=== PATIENT | male | born 1995 | race Caucasian/White ===

== ENCOUNTER 2017-12-14 20:30 | Emergency (ER) | payer BC, OTHER ==
[2017-12-14] MEDS ORDERED: NA CHLORIDE 0.9% 1,000 ML ONE (21:46)
[2017-12-14 21:53] LABS: Absolute Lymphocytes (CBC) 0.6 K/uL (0.7-4.9); Absolute Monocytes 0.7 K/uL (0.1-1.3); Absolute Neutrophil 4.2 K/uL (1.8-8.0); Basophils % 0.2 % (0-1.3); Eosinophils % 0.3 % (0-4.4); Hematocrit 40.6 % (39.6-49.0); Lymphocytes % 10.4 % (15.3-44.8); MCH 29.3 pg (27.0-35.0); MCV 89.8 fL (80-100); MPV 9.4 fL (7.6-11.3); RBC Red Blood Cell Count 4.51 M/uL (4.33-5.43)
[2017-12-14 22:01] LABS: Bicarbonate 28 mEq/L (21-31); Glucose Level 111 mg/dL (65-120); Lipase 18 U/L (22-51); Potassium 3.5 mEq/L (3.6-5.0); Sodium Level 137 mEq/L (135-145)
[2017-12-14 22:06] LABS: Urine Bacteria <20 /HPF (NONE SEEN); Urine Culture Reflex Order NOT NEEDED; Urine RBC <5 /HPF (NONE SEEN)
[2017-12-14 22:07] LABS: ALT/SGPT 16 IU/L (10-60); AST/SGOT 21 IU/L (10-42); Albumin 3.9 g/dL (3.2-5.5); Alkaline Phosphatase 52 IU/L (42-121); Amylase Level 30 U/L (28-100); BUN Blood Urea Nitrogen 11 mg/dL (6-20); Bilirubin Direct 0.1 mg/dL (0-0.2); Bilirubin Total 0.4 mg/dL (0.3-1.2); Protein, Total 6.6 g/dL (6.0-8.3)
[2017-12-14 22:07] LABS: Urine Blood NEGATIVE (NEG); Urine Glucose NEGATIVE (NEG); Urine Protein TRACE (NEG); Urine Specific Gravity 1.025 (1.005-1.030)
--- NOTE | 2017-12-15 00:19 | EDPHYS ---
Physician Documentation [facility] Name: Juno Adkins Age: 22 yrs Sex: Male : 1995 Arrival Date: 12/14/2017 Time: 20:36 Bed 20 Private MD: Sami Chang ED Physician Jorge Sharpe HPI: 12/14 21:35 This 22 yrs old Male presents to ER via Ambulatory with complaints of Fever, cp Nausea/Vomiting. 21:35 The patient reports fever, that was measured at 102 degrees Fahrenheit, today. Onset: cp The symptoms/episode began/occurred 3 day(s) ago. Associated signs and symptoms: Pertinent positives: headache, diarrhea 3 days ago, intermittent vomiting, nausea. Severity of symptoms: in the emergency department the symptoms have improved mildly. 21:35 Associated signs and symptoms: Pertinent positives: sore throat. cp Historical: - Allergies: 21:12 No Known Allergies; jd3 - Home Meds: 21:33 anxiety med [Active]; ea - PMHx: 21:33 Anxiety; ea - PSHx: 21:33 None; ea - Immunization history:: Adult Immunizations up to date. - Social history:: Smoking status: Patient uses tobacco products, denies chronic smoking, but will smoke occasionally. - Ebola Screening: : Patient negative for fever greater than or equal to 101.5 degrees Fahrenheit, and additional compatible Ebola Virus Disease symptoms. ROS: 21:42 Constitutional: Negative for fever, poor PO intake. cp 21:42 Eyes: Negative for injury, pain, redness, and discharge. cp 21:42 ENT: Positive for sore throat, Negative for drainage from ear(s), ear pain, difficulty swallowing, difficulty handling secretions. 21:42 Neck: Negative for pain with movement, pain at rest, stiffness, swollen nodes. 21:42 Cardiovascular: Negative for chest pain, palpitations. 21:42 Respiratory: Negative for cough, shortness of breath, wheezing. 21:42 Abdomen/GI: Positive for nausea, Negative for abdominal pain, constipation, black/tarry stool, rectal bleeding, active vomiting, active diarrhea. 21:42 Back: Negative for pain at rest, pain with movement, radiated pain. 21:42 : Negative for urinary symptoms, pelvic pain, flank pain, testicular pain 21:42 Skin: Negative for cellulitis, rash. 21:42 Neuro: Positive for headache, Negative for altered mental status, weakness. 21:42 All other systems are negative. Exam: 21:50 Constitutional: The patient appears in no acute distress, alert, awake, non-toxic, well cp developed, well nourished. 21:50 Head/Face: Normocephalic, atraumatic. cp 21:50 Eyes: Periorbital structures: appear normal, Pupils: equal, round, and reactive to light and accomodation, Extraocular movements: intact throughout, Conjunctiva: normal, no exudate, no injection, Sclera: no appreciated abnormality, Lids and lashes: appear normal, bilaterally. 21:50 ENT: External ear(s): are unremarkable, Ear canal(s): are normal, clear, TM's: are normal, no evidence of bulging, no erythema, dullness, bilaterally, Nose: is normal, Mouth: Lips: moist, Oral mucosa: pink and intact, moist, Posterior pharynx: Airway: no evidence of obstruction, patent, Tonsils: mild erythema, no enlargement, no exudate, Uvula: midline, non-edematous, swelling, is not appreciated, erythema, that is mild, exudate, is not appreciated, Voice: is normal. 21:50 Neck: ROM/movement: is normal, is supple, without pain, no range of motions limitations, no meningismus, no nuchal rigidity, Lymph nodes: no appreciated lymphadenopathy. 21:50 Chest/axilla: Inspection: normal, Palpation: is normal, no crepitus, no tenderness. 21:50 Cardiovascular: Rate: normal, Rhythm: regular, Edema: is not appreciated, JVD: is not appreciated. 21:50 Respiratory: the patient does not display signs of respiratory distress, Respirations: normal, no use of accessory muscles, no retractions, no splinting, no tachypnea, labored breathing, is not present, Breath sounds: are clear throughout, no decreased breath sounds, no stridor, no wheezing. 21:50 Abdomen/GI: Inspection: abdomen appears normal, Bowel sounds: active, all quadrants, Palpation: soft, in all quadrants, nontender, in all quadrants, rebound tenderness, is not appreciated, voluntary guarding, is not appreciated, involuntary guarding, is not appreciated. 21:50 Back: ROM is normal, CVA tenderness, is absent. 21:50 Musculoskeletal/extremity: Exam is negative for bony tenderness, calf tenderness, deformity, edema, injury, Circulation is intact in all extremities. Sensation intact. 21:50 Skin: cellulitis, is not appreciated, no rash present. 21:50 Neuro: Orientation: to person, place \T\ time. Mentation: lucid, able to follow commands, Cerebellar function: is grossly normal, Motor: moves all fours, strength is normal, Sensation: no obvious gross deficits, Gait: is steady. Vital Signs: 21:07 BP 141 / 54; Pulse 87; Resp 18 S; Temp 99.7(O); Pulse Ox 97% on R/A; Weight 136.08 kg jd3 (R); Height 6 ft. 4 in. (193.04 cm) (R); Pain 3/10; 22:00 BP 114 / 59; Pulse 76; Pulse Ox 99% on R/A; jd3 23:14 BP 122 / 63; Pulse 63; Resp 17 S; Temp 99.7(O); Pulse Ox 100% on R/A; Pain 3/10; jd3 11 00:21 BP 135 / 60; Pulse 72; Resp 17 S; Pulse Ox 99% on R/A; Pain 3/10; jd3 12/14 21:07 Body Mass Index 36.52 (136.08 kg, 193.04 cm) jd3 MDM: 12/14 20:46 Patient medically screened. pkl 22:00 Differential diagnosis: bronchitis, pneumonia UTI, gastroenteritis, meningitis, cp bacteremia, strep throat, mono. 12/15 00:15 Data reviewed: vital signs, nurses notes, lab test result(s). cp 00:15 Counseling: I had a detailed discussion with the patient and/or guardian regarding: the cp historical points, exam findings, and any diagnostic results supporting the discharge/admit diagnosis, lab results, to return to the emergency department if symptoms worsen or persist or if there are any questions or concerns that arise at home. Response to treatment: the patient's symptoms have markedly improved after treatment, patient is well hydrated. and as a result, I will discharge patient. 12/14 21:21 Order name: Amylase, Serum cp 12/14 21:21 Order name: Basic Metabolic Panel cp 12/14 20: Order name: CBC with Diff; Complete Time: 22:57 cp 12/14 22:57 Interpretation: Normal except: HGB 13.2; PLT 128; CLAY% 77.1; LYM% 10.4; LYMA 0.6. cp 12/14 21:21 Order name: Creatinine for Radiology; Complete Time: 22:57 cp 12/14 21:21 Order name: Hepatic Function 12/14 21:21 Order name: Lipase; Complete Time: 22:57 cp 12/14 22:57 Interpretation: LIP 18; Reviewed. 12/14 21:21 Order name: Urine Microscopic Only; Complete Time: 22:57 cp 12/14 21:21 Order name: [place] Screen Profile; Complete Time: 22:57 cp 12/14 21:21 Order name: Strep; Complete Time: 22:57 cp 12/14 21:22 Order name: Amylase Level; Complete Time: 22:57 EDMS 12/14 21:22 Order name: Basic Metabolic Panel; Complete Time: 22:57 EDMS 12/14 22:57 Interpretation: Normal except: K 3.5. 12/14 21:22 Order name: Liver (Hepatic) Function; Complete Time: 22:57 EDMS 12/14 22:01 Order name: Urine Dipstick--Ancillary (enter results); Complete Time: 22:57 2 12/14 22:04 Order name: Throat Culture EDMN 12/14 21:21 Order name: IV Saline Lock; Complete Time: 22:02 cp 12/14 21:21 Order name: Labs collected and sent; Complete Time: 22:02 cp 12/14 21:21 Order name: Urine Dipstick-Ancillary (obtain specimen); Complete Time: 22:02 12/14 22:58 Order name: Influenza Screen (a \T\ B) 12/14 22:58 Order name: PO challenge; Complete Time: 23:01 cp Administered Medications: 12/14 21:50 Drug: NS 0.9% 1000 ml Route: IV; Rate: 1 bolus; Site: right antecubital; jd3 12/15 00:30 Follow up: Response: No adverse reaction; IV Status: Completed infusion; IV Intake: jd3 1000ml Disposition: 23:15 Co-signature as Attending Physician, Jorge Sharpe MD. pkl Disposition: 12/15/17 00:18 Discharged to Home. Impression: Nausea. - Condition is Stable. - Discharge Instructions: Nausea, Adult. - Prescriptions for Zofran 4 mg Oral Tablet - take 1 tablet by ORAL route every 12 hours As needed; 20 tablet. - Medication Reconciliation Form, Thank You Letter, Antibiotic Education, Prescription Opioid Use form. - Follow up: Private Physician; When: 1 - 2 days; Reason: Recheck today's complaints. - Problem is new. - Symptoms have improved. Signatures: Dispatcher [employer] EDMS Jorge Sharpe MD MD pkRodrigo Berry PA PA cp Antunez, Elena RN RN Silviano Brown RN RN jd3 Corrections: (The following items were deleted from the chart) 12/14 22:57 22:57 Normal except: HGB 13.2; PLT 128; CLAY% 77.1; LYM% 10.4. cp cp 12/15 00:30 00:18 12/15/2017 00:18 Discharged to Home. Impression: Nausea. Condition is Stable. jd3 Forms are Medication Reconciliation Form, Thank You Letter, Antibiotic Education, Prescription Opioid Use. Follow up: Private Physician; When: 1 - 2 days; Reason: Recheck today's complaints. Problem is new. Symptoms have improved. cp
--- NOTE | 2017-12-15 00:19 | ER ---
Nurse's Notes [facility] Name: Juno Adkins Age: 22 yrs Sex: Male : 1995 Arrival Date: 12/14/2017 Time: 20:36 Bed 20 Private MD: Sami Chang Diagnosis: Nausea Presentation: 12/14 21:13 Presenting complaint: Patient states: "I have been feeling achy and throwing up since jd3 with a persistent fever.". Transition of care: patient was not received from another setting of care. Onset of symptoms was December 11, 2017. Risk Assessment: Do you want to hurt yourself or someone else? Patient reports no desire to harm self or others. Initial Sepsis Screen: Does the patient meet any 2 criteria? No. Patient's initial sepsis screen is negative. Does the patient have a suspected source of infection? No. Patient's initial sepsis screen is negative. Care prior to arrival: Medication(s) given: Tylenol, 1000 mg, at 2000. 21:13 Method Of Arrival: Ambulatory jd3 21:13 Acuity: TELLY 3 jd3 Historical: - Allergies: 21:12 No Known Allergies; jd3 - Home Meds: 21:33 anxiety med [Active]; ea - PMHx: 21:33 Anxiety; ea - PSHx: 21:33 None; ea - Immunization history:: Adult Immunizations up to date. - Social history:: Smoking status: Patient uses tobacco products, denies chronic smoking, but will smoke occasionally. - Ebola Screening: : Patient negative for fever greater than or equal to 101.5 degrees Fahrenheit, and additional compatible Ebola Virus Disease symptoms. Screenin:15 Abuse screen: Denies threats or abuse. Nutritional screening: No deficits noted. jd3 Tuberculosis screening: No symptoms or risk factors identified. Fall Risk Gait- Normal/Bed Rest/Wheelchair (0 pts) Mental Status- Oriented to own ability (0 pts). Total [place] Fall Scale indicates No Risk (0-24 pts). Assessment: 21:05 General: Appears in no apparent distress. uncomfortable, Behavior is calm, cooperative, jd3 appropriate for age. Pain: Complains of pain in back, right leg, left leg and neck Pain currently is 3 out of 10 on a pain scale. Quality of pain is described as aching. Neuro: Level of Consciousness is awake, alert, obeys commands, Oriented to person, place, time, situation. Cardiovascular: Heart tones S1 S2 present Capillary refill < 3 seconds. Respiratory: Airway is patent Respiratory effort is even, unlabored, Respiratory pattern is regular, symmetrical, Breath sounds are clear bilaterally. GI: Abdomen is round Bowel sounds present X 4 quads. Abd is soft and non tender X 4 quads. Reports nausea, vomiting, Patient currently denies abdominal pain. : No signs and/or symptoms were reported regarding the genitourinary system. EENT: No signs and/or symptoms were reported regarding the EENT system. Derm: Skin is intact, Skin is dry, Skin is normal, Skin temperature is warm. Musculoskeletal: Circulation, motion, and sensation intact. Range of motion: intact in all extremities. 22:10 Reassessment: Patient appears in no apparent distress at this time. Patient and/or jd3 family updated on plan of care and expected duration. Pain level reassessed. Patient is alert, oriented x 3, equal unlabored respirations, skin warm/dry/pink. 23:15 Reassessment: Patient appears in no apparent distress at this time. Patient and/or jd3 family updated on plan of care and expected duration. Pain level reassessed. Patient is alert, oriented x 3, equal unlabored respirations, skin warm/dry/pink. awaiting provider's disposition and results. 12/15 00:21 Reassessment: Patient appears in no apparent distress at this time. Patient and/or jd3 family updated on plan of care and expected duration. Pain level reassessed. Patient is alert, oriented x 3, equal unlabored respirations, skin warm/dry/pink. 00:28 Reassessment: Patient appears in no apparent distress at this time. Patient and/or jd3 family updated on plan of care and expected duration. Pain level reassessed. Patient is alert, oriented x 3, equal unlabored respirations, skin warm/dry/pink. pt reported understanding of discharge instructions, even and steady gait upon discharge. Vital Signs: 12/14 21:07 BP 141 / 54; Pulse 87; Resp 18 S; Temp 99.7(O); Pulse Ox 97% on R/A; Weight 136.08 kg jd3 (R); Height 6 ft. 4 in. (193.04 cm) (R); Pain 3/10; 22:00 BP 114 / 59; Pulse 76; Pulse Ox 99% on R/A; jd3 23:14 BP 122 / 63; Pulse 63; Resp 17 S; Temp 99.7(O); Pulse Ox 100% on R/A; Pain 3/10; jd3 12/15 00:21 BP 135 / 60; Pulse 72; Resp 17 S; Pulse Ox 99% on R/A; Pain 3/10; jd3 12/14 21:07 Body Mass Index 36.52 (136.08 kg, 193.04 cm) jd3 ED Course: 12/14 20:36 Patient arrived in ED. am2 20:36 Sami Chang MD is Private Physician. am2 20:46 Jorge Sharpe MD is Attending Physician. pkl 20:46 Rodrigo Goetz PA is PHCP. cp 21:05 Silviano Owens, GILA is Primary Nurse. jd3 21:09 Arm band placed on. jd3 21:15 Triage completed. jd3 21:15 Patient has correct armband on for positive identification. Bed in low position. Call jd3 light in reach. Side rails up X 1. Adult w/ patient. 21:35 Inserted saline lock: 20 gauge in right antecubital area, using aseptic technique. jd3 Blood collected. 12/15 00:28 No provider procedures requiring assistance completed. IV discontinued, intact, jd3 bleeding controlled, No redness/swelling at site. Pressure dressing applied. Administered Medications: 12/14 21:50 Drug: NS 0.9% 1000 ml Route: IV; Rate: 1 bolus; Site: right antecubital; jd3 12/15 00:30 Follow up: Response: No adverse reaction; IV Status: Completed infusion; IV Intake: jd3 1000ml Intake: 00:30 IV: 1000ml; Total: 1000ml. jd3 Outcome: 00:18 Discharge ordered by . cp 00:28 Discharged to home ambulatory, with family. jd3 00:28 Condition: stable 00:28 Discharge instructions given to patient, family, Instructed on discharge instructions, follow up and referral plans. medication usage, Demonstrated understanding of instructions, follow-up care, medications, Prescriptions given X 1. 00:30 Patient left the ED. jd3 Signatures: Jorge Sharpe MD MD pkRodrigo Berry PA PA cp Moreno, Amanda am2 Antunez, Elena, RN GILA ea Silviano Owens RN RN jd3 Corrections: (The following items were deleted from the chart) 12/14 21:28 21:13 Acuity: TELLY 4 jd3 jd3
== END 2017-12-15 00:30 | disposition home or self-care (01) ==
LOC: ER 20:30
DX: R11.0 Nausea (principal); Z72.0 Tobacco use
CPT/HCPCS: 36415; 80048; 80076; 81003; 81015; 82150; 83690; 85025; 86308; 87070; 87081; 87804; 96360; 96361; 99284; J7030

== ENCOUNTER 2020-05-27 09:52 | Emergency (ER) | payer BC, SELFPAY ==
--- OUTSIDE RECORDS SUMMARY | 2020-05-27 09:54 | XMS REPORT | Summary of Care ---
:1995 Author Organization [facility] - Health Address [address] [place] [address] Care Team Providers Name Role Phone Sami Chang Primary Care Provider Reason for Visit Reason Comments LAB WORK Encounter Details Date Type Department Care Team Description 03/23/2020 Laboratory Only [facility] Robert Soler MD [address] [facility] [address] [place] [address] COVID-19 (Primary Phlebotomy Only, Adc Test Dx) Lab-[address] [id number] Allergies Not on Filedocumented as of this encounter (statuses as of 03/23/2020) Medications Not on filedocumented as of this encounter (statuses as of 03/23/2020) Active Problems Not on filedocumented as of this encounter (statuses as of 03/23/2020) Social History Tobacco Use Types Packs/Day Years Used Date Never Assessed Sex Assigned at Date Recorded Not on file documented as of this encounter Last Filed Vital Signs Not on filedocumented in this encounter Nursing Notes Cate Bowling - 03/23/2020 12:00 PM CDTCovid swab collected. documented in this encounter Plan of Treatment Name Type Priority Associated Diagnoses Date/Ti me COVID-19 (PCR MOLECULAR LAB Routine COVID-19 03/07 12:16 PM CDT TESTING) Name Type Priority Associated Diagnoses Order S chedule COVID-19 (PCR MOLECULAR LAB Routine COVID-19 Expe cted: 03/23/2020, TESTING) Expires: 2020 Health Maintenance Due Date Last Done Comments VARICELLA VACCINES (1 of 2 - 1995 2-dose childhood series) HPV VACCINES (1 - Male 2-dose 2005 series) Depression Screening 2006 DTaP,Tdap,and Td Vaccines (1 - 2013 Tdap) INFLUENZA VACCINE (#1) 2020 PNEUMOCOCCAL 0-64 YEARS COMBINED Aged Out No longer eligible based on SERIES patient's age to complete this topic documented as of this encounter Results Not on filedocumented in this encounter Visit Diagnoses Diagnosis COVID-19 - Primary documented in this encounter Additional Health Concerns Infection Onset Date Last Indicated Resolved Time COVID-19 Rule Out 03/23/2020 03/23/2020 documented as of this encounter Insurance Payer Benefit Plan Subscriber ID Effective Dates Phone Address Type / Group [facility] [id number] 2019-Adarsh [phone] [address] PPO/POS [place] - OUT OF t 7 [id number] [place] [address] documented as of this encounter
--- OUTSIDE RECORDS SUMMARY | 2020-05-27 09:54 | XMS REPORT | Summary of Care ---
:1995 Author Organization [facility] - Health Address [address] [place] [address] Care Team Providers Name Role Phone Sami Chang Primary Care Provider Encounter Details Date Type Department Care Team Description 03/23/2020 Letter (Out) [facility] MyChart Message s Doctor Unassigned, No [address] [facility] [place] [address] [address] [facility] [phone] [place] [address] Allergies Not on Filedocumented as of this [...] Signs Not on filedocumented in this encounter Plan of Treatment Not on filedocumented as of this encounter Results Not on filedocumented in this encounter Insurance Payer Benefit Plan Subscriber ID Effective Dates Phone Address Type / Group [employer] [facility] [id number] 2019-Adarsh [phone] [address] PPO/POS [place] - OUT OF t 7 [id number] [place] [address] documented as of this encounter
--- OUTSIDE RECORDS SUMMARY | 2020-05-27 09:54 | XMS REPORT | Continuity of Care Document ---
:1995 Author Organization [facility] t Address [address] [place] [address] Care Team Providers Name Role Phone Only, Test Attending Clinician Unavailable Doctor Unassigned, Name Attending Clinician Unavailable Problems Condition Condition Condition Status Onset Resolution Last Treating Co mments Source Name Details Category Date Date Treatment Clinician Date Anxiety Anxiety Diagnosis [facility] Body mass Body mass Problem Active [facility] (BMI) of (BMI) of [facility] a 35.0-35.9 35.0-35.9 l in adult in adult Outpat i ent Clinics Onychomyco Onychomyco Diagnosis Active [facility] Allergies, Adverse Reactions, Alerts This patient has no known allergies or adverse reactions. Medications Ordered Filled Start Stop Current Ordering Indication Dosage Frequency Signature Comments Components Source Medication Medication Date Date Medication? Clinician (SIG) Name Name HydrOXYzine HydrOXYzine 2019- Yes Sami [address] [facility] HCl HCl 6-11 Charlene as needed [facility] Terbinafine Terbinafine 2019- 2019- No Sami [address] [facility] HCl HCl 6-11 09-09 Charlene [facility]: 00:00 [facility] 00 :[facility] Fluticasone Fluticasone 2017- Yes Sami [address] [facility] Propionate Propionate 0-08 Charlene each Bee k[facility] - 00:00: nostril [facility] 00 l [facility] Sertraline Sertraline 2017- Yes Sami [address] [facility] HCl HCl 3-22 Charlene [facility] - 00:00: [facility] 00 [facility] ent Clinics Procedures This patient has no known procedures. Encounters Start End Encounter Admission Attending Care Care Encounter Source Date/Time Date/Time Type Type Clinicians Facility Department ID 2020-03-23 2020-03-23 Laboratory Only, Adc [facility] [id number] 12:08:50 12:23:50 Only Test [place] [id number] [place] [id number] [place] [id number] 2020-03-23 2020-03-23 Orders Doctor LATOSHA [id number] 00:00:00 00:00:00 Only Unassigned, [place] [id number] [place] [id number] [id number] 2020-03-23 2020-03-23 Letter Doctor LATOSHA [id number] 00:00:00 00:00:00 (Out) Unassigned, [facility] [id number] [place] [id number] 2019-03-15 2019-03-15 [facility] [id number] [facility] 08:00:00 08:00:00 [facility] 2018-12-15 2018-12-15 [facility] [id number] [facility] [address] 16:30:00 16:30:00 [facility] 2018-06-17 2018-06-17 [facility] [id number] 09:00:00 09:00:00 [facility] Medicine Medicine Outpati ent Clinics 2018-04-13 2018-04-13 [facility] [id number] [facility] 14:30:00 14:30:00 [facility] Medicine Outpati ent Clinics 2017-12-16 2017-12-16 [facility] [id number] [facility] [address] 14:45:00 14:45:00 [facility] Medicine Outpati ent Clinics Results This patient has no known results.
--- OUTSIDE RECORDS SUMMARY | 2020-05-27 09:54 | XMS REPORT | Summary of Care ---
:1995 Author Organization [facility] - Health Address [address] [place] [address] Care Team Providers Name Role Phone Sami Chang Delia Primary Care Provider Encounter Details Date Type Department Care Team Description 03/23/2020 Orders Only [facility] Doctor Unassigned, No 301 [facility] [place] [address] [address] [place] [address] Allergies Not on Filedocumented as of this [...] Not on filedocumented as of this encounter Procedures Procedure Name Priority Date/Time Associated Diagnosis Comme nts ASSIGNMENT OF BENEFITS Routine 03/23/2020 12:08 PM CDT documented in this encounter Results Not on filedocumented in this encounter Insurance Payer Benefit Plan Subscriber ID Effective Dates Phone Address Type / Group [employer] [place] [id number] 2019-Adarsh [phone] [address] PPO/POS [place] - OUT OF t 7 [id number] [place] [address] documented as of this encounter
[2020-05-27] MEDS ORDERED: LIDOCAINE 1% W/EPI 1:100,000 MDV 20 ML VIAL ONE (10:32)
[2020-05-27] MEDS ORDERED: TETANUS & DIPHTHERIA TOX,ADULT 0.5 ML VIAL ONE (10:32)
--- NOTE | 2020-05-27 10:50 | EDPHYS ---
Physician Documentation [facility] Name: Juno Adkins Age: 24 yrs Sex: Male : 1995 Arrival Date: 05/27/2020 Time: 09:56 Bed 15 Private MD: Sami Chang ED Physician Kenny Loya HPI: 05/27 10:05 This 24 yrs old Male presents to ER via Ambulatory with complaints of cp Laceration To Hand. 10:05 The patient has a laceration occurred at home, and there are no complicating factors. cp The laceration(s) is(are) located on the dorsum of left hand. Onset: The symptoms/episode began/occurred just prior to arrival. Patient reports he accidently struck metal object with hand. 10:05 Associated signs and symptoms: Pertinent negatives: heavy bleeding, numbness distal to cp injury, suspected foreign body. Historical: - Allergies: 10:09 No Known Allergies; sv - PMHx: 10:09 Anxiety; sv - PSHx: 10:09 None; sv - Immunization history:: Flu vaccine is not up to date. - Social history:: Smoking status: Patient denies any tobacco usage or history of. ROS: 10:20 Skin: Positive for laceration(s), of the dorsum of left hand. cp 10:20 Constitutional: Negative for chills, fever. cp 10:20 Cardiovascular: Negative for chest pain. 10:20 Respiratory: Negative for cough. 10:20 Abdomen/GI: Negative for abdominal pain. 10:20 Neuro: Negative for numbness, tingling. 10:20 All other systems are negative. Exam: 10:20 Constitutional: The patient appears in no acute distress, alert, awake, well developed, cp well nourished. 10:20 Musculoskeletal/extremity: Extremities: noted in the left hand: laceration, There is no cp evidence of bony tenderness, ROM: full active range of motion, in the left hand, Perfusion: the extremity is normally perfused throughout, Tendon exam: specific tendon testing normal through active and passive range of motion 10:20 Skin: injury, laceration(s), the wound is approximately 2 cm(s), of the dorsum of left hand proximal to fifth metacarpal, that can be described as clean, linear, with mild bleeding. Vital Signs: 10:08 BP 121 / 77; Pulse 76; Resp 16; Pulse Ox 99% ; Weight 149.69 kg; Height 6 ft. 4 in. sv (193.04 cm); 10:08 Body Mass Index 40.17 (149.69 kg, 193.04 cm) sv Laceration: 10:50 Wound Repair of 2cm ( 0.8in ) subcutaneous laceration to dorsum of left hand proximal cp to fifth metacarpal. Linear shaped.. Distal neuro/vascular/tendon intact. Anesthesia: Wound infiltrated with 3 mls of 1% lidocaine w/ Epi. Wound prep: Moderate cleansing by me, Wound irrigation by me. Skin closed with 3 4-0 Prolene using interrupted sutures and sterile technique. Dressed with Bacitracin. Patient tolerated well. MDM: 10:01 Patient medically screened. cp 10:05 Differential diagnosis: superficial laceration, tendon injury, open fracture. cp 10:49 Data reviewed: vital signs, nurses notes, and as a result, I will discharge patient. cp 10:49 Counseling: I had a detailed discussion with the patient and/or guardian regarding: the cp historical points, exam findings, and any diagnostic results supporting the discharge/admit diagnosis, to return to the emergency department if symptoms worsen or persist or if there are any questions or concerns that arise at home. 10:49 Response to treatment: the patient's symptoms have markedly improved after treatment, cp and as a result, I will discharge patient. 05/27 10:01 Order name: Dressing - Wound; Complete Time: 10:54 cp 05/27 10:01 Order name: Gloves, Sterile; Complete Time: 10:40 cp 05/27 10:01 Order name: Setup Suture Tray; Complete Time: 10:25 cp 05/27 10:01 Order name: Wound Care: please clean and irrigate wound; Complete Time: 10:40 cp 05/27 10:44 Order name: Wound dressing; Complete Time: 11:01 cp Administered Medications: 10:25 Drug: Tetanus-Diphtheria Toxoid Adult 0.5 ml {Control Operator Flow Coat: Mama. Exp: em 09/17/2021. Lot #: [id number]. } Route: IM; Site: right deltoid; 10:40 Follow up: Response: No adverse reaction em 10:35 Drug: Lidocaine-Epinephrine -1%: (1:100,000) 5 ml {Note: administered by NATACHA Wallace.} em Volume: 20 ml; Route: Infiltration; Site: wound; 11:00 Follow up: Response: No adverse reaction; Pain is decreased em Disposition: 11:05 Chart complete. cp 05/28 06:55 Co-signature as Attending Physician, Kenny Loya MD I agree with the assessment and kdr plan of care. Disposition: 05/27/20 10:49 Discharged to Home. Impression: Laceration without foreign body of left hand. - Condition is Stable. - Discharge Instructions: Laceration Care, Adult, Sutured Wound Care. - Medication Reconciliation Form, Thank You Letter, Antibiotic Education, Prescription Opioid Use, Work release form form. - Follow up: Private Physician; When: 7 - 10 days; Reason: Staple/Suture removal. - Problem is new. - Symptoms have improved. Signatures: Alize Joseph RN RN sv Kenny Loya MD MD kdr Jose Weaver RN RN em Page, NATACHA Wallace cp Corrections: (The following items were deleted from the chart) 05/27 11:01 10:44 Splint - Finger ordered. cp em 11:04 10:49 05/27/2020 10:49 Discharged to Home. Impression: Laceration without foreign body em of left hand. Condition is Stable. Forms are Medication Reconciliation Form, Thank You Letter, Antibiotic Education, Prescription Opioid Use. Follow up: Private Physician; When: 7 - 10 days; Reason: Staple/Suture removal. Problem is new. Symptoms have improved. cp 05/28 09:42 05/27 10:00 Differential diagnosis: superficial laceration, tendon injury, open cp fracture cp
--- NOTE | 2020-05-27 10:50 | ER ---
Nurse's Notes [facility] Name: Juno Adkins Age: 24 yrs Sex: Male : 1995 Arrival Date: 05/27/2020 Time: 09:56 Bed 15 Private MD: Sami Chang Diagnosis: Laceration without foreign body of left hand Presentation: 05/27 10:08 Chief complaint: Patient states: left knuckle laceration after accidently hitting it sv into a metal object. Coronavirus screen: Client denies travel out of the [place] in the last 14 days. At this time, the client does not indicate any symptoms associated with coronavirus-19. Ebola Screen: No symptoms or risks identified at this time. Complicating Factors: There are no complicating factors for this patient. Initial Sepsis Screen: Does the patient meet any 2 criteria? No. Patient's initial sepsis screen is negative. Does the patient have a suspected source of infection? No. Patient's initial sepsis screen is negative. Risk Assessment: Do you want to hurt yourself or someone else? Patient reports no desire to harm self or others. Onset of symptoms was May 27, 2020. 10:08 Method Of Arrival: Ambulatory sv 10:08 Acuity: TELLY 3 sv Historical: - Allergies: 10:09 No Known Allergies; sv - PMHx: 10:09 Anxiety; sv - PSHx: 10:09 None; sv - Immunization history:: Flu vaccine is not up to date. - Social history:: Smoking status: Patient denies any tobacco usage or history of. Screenin:33 Abuse screen: Denies threats or abuse. Nutritional screening: No deficits noted. em Tuberculosis screening: No symptoms or risk factors identified. Fall Risk None identified. Assessment: 10:15 General: Appears in no apparent distress. comfortable, Behavior is calm, cooperative, em appropriate for age. Pain: Complains of pain in dorsum of left hand. Neuro: Level of Consciousness is awake, alert, obeys commands, Oriented to person, place, time, situation, Appropriate for age. Cardiovascular: Capillary refill < 3 seconds Patient's skin is warm and dry. Respiratory: Airway is patent Respiratory effort is even, unlabored, Respiratory pattern is regular, symmetrical. Derm: Wound noted dorsum of left hand Wound is lac. about 1 cm. Musculoskeletal: Capillary refill < 3 seconds, Range of motion: intact in all extremities. Injury Description: Laceration is clean, 0.5 to 2.5 cm long, not bleeding, was sustained 30-60 minutes ago. is bleeding a small amount. Vital Signs: 10:08 BP 121 / 77; Pulse 76; Resp 16; Pulse Ox 99% ; Weight 149.69 kg; Height 6 ft. 4 in. sv (193.04 cm); 10:08 Body Mass Index 40.17 (149.69 kg, 193.04 cm) sv ED Course: 09:56 Patient arrived in ED. mr 09:56 Sami Chang MD is Private Physician. mr 09:57 [facility]. cp 09:57 Kenny Loya MD is Attending Physician. cp 10:00 Jose Weaver, GILA is Primary Nurse. em 10:09 Triage completed. sv 10:09 Arm band placed on. sv 10:33 Patient has correct armband on for positive identification. Adult w/ patient. em 11:00 Assist provider with laceration repair on dorsum of left hand that was 2.5 cm. or less em using sutures. Set up tray. Performed by Rodrigo MANZANO Dressed with 4X4s, Giorgio, Neosporin, Patient tolerated well. 11:04 Patient did not have IV access during this emergency room visit. em Administered Medications: 10:25 Drug: Tetanus-Diphtheria Toxoid Adult 0.5 ml {Avionics Electrical Engineer: [employer]. Exp: em 09/17/2021. Lot #: [id number]. } Route: IM; Site: right deltoid; 10:40 Follow up: Response: No adverse reaction em 10:35 Drug: Lidocaine-Epinephrine -1%: (1:100,000) 5 ml {Note: administered by NATACHA Wallace.} em Volume: 20 ml; Route: Infiltration; Site: wound; 11:00 Follow up: Response: No adverse reaction; Pain is decreased em Outcome: 10:49 Discharge ordered by . cp 11:03 Discharged to home ambulatory, with family. em 11:03 Condition: good 11:03 Discharge instructions given to patient, family, Instructed on discharge instructions, follow up and referral plans. wound care, Demonstrated understanding of instructions, follow-up care, wound care. 11:04 Patient left the ED. em Signatures: Alize Joseph, RN RN [facility] mr Jose Weaver RN RN Rodrigo Cr PA PA cp
[2020-05-27 16:44] VITALS: BP 121/77; O2SAT 99
== END 2020-05-27 11:04 | disposition home or self-care (01) ==
LOC: ER 09:52
PROC: 0JQK0ZZ Repair Left Hand Subcutaneous Tissue and Fascia, Open Approach (ICD-10-PCS; principal; 2020-05-27)
DX: S61.412A Laceration without foreign body of left hand, initial encounter (principal); W22.8XXA Striking against or struck by other objects, initial encounter; Y93.89 Activity, other specified; Y92.009 Unspecified place in unspecified non-institutional (private) residence as the place of occurrence of the external cause
CPT/HCPCS: 90471; 90714; 99283